=== PATIENT | female | born 1955 | race Caucasian/White ===

== ENCOUNTER 2022-01-10 07:59 | Outpatient (CLI) | payer MEDICARE, OTHER, SELFPAY ==
[2022-01-10 08:43] LABS: Creatinine* 0.8 mg/dL (0.5-1.5); Estimated Glomerular Filt Rate 80 ml/min
--- NOTE | 2022-01-10 09:00 | CRLHL7_ITS ---
For Patients: As a result of the Century Cures Act, medical imaging exams and procedure reports are released immediately into your electronic medical record. You may view this report before your referring provider. If you have questions, please contact your health care provider. INDICATION: Thyroid nodule, swelling since 2017 TECHNIQUE: CT of the neck with 71 ml iodinated contrast agent. Coronal and sagittal reconstructions are included. COMPARISON: None available FINDINGS: Asymmetric heterogeneous nodular enlargement of the left thyroid lobe extending into the superior mediastinum, measuring approximately 5.6 x 4.6 x 9.7 cm AP by TR by CC (series 3, image 56, series 5, image 31). Rightward deviation of the trachea and esophagus. Visualized airway remains grossly patent. Oral cavity, pharyngeal mucosal spaces, and laryngeal structures appear unremarkable. Major salivary glands have a normal appearance. No cervical lymphadenopathy by CT size criteria. Normal contrast opacification of the major cervical vasculature. No suspicious findings within the included orbits or intracranial structures. The cervical spondylosis, including disc-osteophyte complex at C5-6 contributing to mild-moderate spinal canal narrowing. No suspicious osseous lesions. No focal consolidation or mass in the lung apices. IMPRESSION: 1. Asymmetric heterogeneous nodular enlargement of the left thyroid lobe as measured, extending into the superior mediastinum, and deviating the trachea and esophagus rightward. 2. No evidence of airway compromise. 3. No cervical lymphadenopathy. 4. Cervical spondylosis with mild-moderate spinal canal narrowing at C5-6. Please note that all CT scans at this facility use dose modulation, iterative reconstruction, and/or weight-based dosing when appropriate to reduce radiation dose to as low as reasonably achievable. Dictated by Hamida Braun MD @ 01/10/2022 2:03:08 PM (Electronically Signed)
== END 2022-01-10 08:00 | disposition home or self-care (01) ==
LOC: CT 08:03
PROVIDERS: Visit Provider Otolaryngology
DX: E04.1 Nontoxic single thyroid nodule (principal); M47.892 Other spondylosis, cervical region
CPT/HCPCS: 36415; 70491; 82565; Q9967